=== PATIENT | female | born 1945 | race Caucasian/White ===

== ENCOUNTER 2017-06-03 04:35 | Inpatient (IN) | payer OTHER ==
[~2017-06-03] VITALS: Ht 162.6 cm; Wt 106.4 kg
[2017-06-03] MEDS ORDERED: ONDANSETRON 2MG/ML, 2ML ONE (04:58)
[2017-06-03] MEDS ORDERED: ONDANSETRON 2MG/ML, 2ML IVPush ONE (05:00)
[2017-06-03] MEDS ORDERED: SODIUM CHLORIDE 0.9% 1,000ML IVBOLUS ONE (05:00)
[2017-06-03] MEDS ORDERED: PROMETHAZINE 25 MG/ML, 1ML IM ONE (05:30)
[2017-06-03 05:40] LABS: BASOPHILS # (AUTO) 0.01 x10^3/uL (0-0.1); BASOPHILS % (AUTO) 0 % (0-1); EOSINOPHILS # (AUTO) 0.01 x10^3/uL (0-0.4); EOSINOPHILS % (AUTO) 0 % (1-7); LYMPHOCYTES % (AUTO) 7 % (22-44); MD NO; MEAN CORPUSCULAR HEMOGLOBIN 29.8 pg (27.0-34.8); MEAN CORPUSCULAR HGB CONC 33.2 g/dL (32.4-35.8); MEAN CORPUSCULAR VOLUME 89.9 fL (80-100); MEAN PLATELET VOLUME 8.1 fL (7.4-10.4); MONOCYTES # (AUTO) 0.37 x10^3/uL (0.2-0.8); MONOCYTES % (AUTO) 4 % (2-9); NEUTROPHILS # (AUTO) 7.99 x10^3/uL (1.8-6.8); NEUTROPHILS % (AUTO) 89 % (42-75); PLATELET COUNT 230 x10^3/uL (130-400); RED BLOOD COUNT 5.47 x10^6/uL (3.82-5.3); RED CELL DISTRIBUTION WIDTH 13.5 % (9.6-15.2)
[2017-06-03] MEDS ORDERED: PROMETHAZINE 25 MG/ML, 1ML ONE (05:42)
[2017-06-03 05:44] LABS: ALANINE AMINOTRANSFERASE 37 U/L (12-78); ALBUMIN 3.1 g/dL (3.4-5.0); ANION GAP 6 mmol/L (5-15); CALCIUM 8.5 mg/dL (8.5-10.1); CHLORIDE 109 mmol/L (98-107)
[2017-06-03 05:49] LABS: ALKALINE PHOSPHATASE 82 U/L (45-117); BILIRUBIN,TOTAL 0.5 mg/dL (0.2-1.0); TOTAL PROTEIN 6.9 g/dL (6.4-8.2); TROPONIN I < 0.015 ng/mL (0.000-0.045)
[2017-06-03] MEDS ORDERED: FAMOTIDINE 20 MG/2 ML ONE (05:50)
[2017-06-03 05:55] LABS: THYROID STIMULATING HORMONE 0.632 mIU/L (0.358-3.740)
[2017-06-03] MEDS ORDERED: NS + 40MEQ KCL 1,000 ML IV ONE ×2 (05:59→06:18)
[2017-06-03] MEDS ORDERED: FAMOTIDINE 20 MG/2 ML IVPush ONE (06:00)
[2017-06-03] MEDS ORDERED: MAALOX/HYOSCYAMINE/LIDOCAINE 45 ML BTL PO ONE (06:00)
[2017-06-03] MEDS ORDERED: MAALOX/HYOSCYAMINE/LIDOCAINE 45 ML BTL ONE (06:18)
[2017-06-03 06:44] LABS: RAPID INFLUENZA A Negative (Negative); RAPID INFLUENZA B Negative (Negative)
[2017-06-03] MEDS ORDERED: HYDR25TA6 PO (07:11)
[2017-06-03] MEDS ORDERED: SIMV10TA3 PO (07:11)
[2017-06-03] MEDS ORDERED: LEVO25TA4 PO (07:11)
[2017-06-03] MEDS ORDERED: METO-93 PO (07:11)
[2017-06-03] MEDS ORDERED: AMLO2.5T PO (07:11)
[2017-06-03 07:41] LABS: CULTURE INDICATED? YES; MICROSCOPIC INDICATED
[2017-06-03] MEDS ORDERED: ACETAMINOPHEN 325 MG TABLET PO PRN (08:30)
[2017-06-03] MEDS ORDERED: OXYcodone IR 5MG TABLET PO PRN (08:30)
[2017-06-03] MEDS ORDERED: ENALAPRILAT 1.25 MG/ML, 2ML IVPush PRN (08:30)
[2017-06-03] MEDS ORDERED: morphine SULFATE 10 MG/ML, 1ML IVPush PRN (08:30)
[2017-06-03] MEDS ORDERED: hydrALAzine 20 MG/ML, 1ML IVPush PRN (08:30)
[2017-06-03 09:11] LABS: HEMOGLOBIN A1C 6.1 % (4.2-6.3)
[2017-06-03 10:18] VITALS: BP 175/83
[2017-06-03] MEDS: METOPROLOL SUCCINATE 50 MG TAB.ER.24H PO SCH (10:35)
[2017-06-03] MEDS: HEPARIN 5,000 UNITS/ML, 1ML SQ SCH ×2 (10:35→17:59)
[2017-06-03] MEDS: LEVOTHYROXINE 25 MCG TABLET PO SCH (10:35)
[2017-06-03] MEDS: SODIUM CHLORIDE 0.9% 1,000 ML IV SCH ×2 (10:38→22:32)
[2017-06-03] MEDS: AMLODIPINE 2.5 MG TABLET PO SCH (10:52)
[2017-06-03] MEDS: ERTAPENEM 1 GM in SODIUM CHLORIDE 0.9% 50 ML IV SCH (11:10)
[2017-06-03 14:19] VITALS: BP 129/82
[2017-06-03] MEDS: SIMVASTATIN 10 MG TABLET PO SCH (20:20)
[2017-06-03] MEDS: SODIUM CHLORIDE NASAL SPRAY 45ML BOTTLE NAS PRN (20:20)
[2017-06-03 20:51] VITALS: BP 106/66
[2017-06-04 01:06] VITALS: BP 129/73
[2017-06-04] MEDS: HEPARIN 5,000 UNITS/ML, 1ML SQ SCH ×3 (02:44→16:30)
[2017-06-04] MEDS: SODIUM CHLORIDE 0.9% 1,000 ML IV SCH (02:44)
[2017-06-04 06:08] LABS: BASOPHILS # (AUTO) 0.03 x10^3/uL (0-0.1); BASOPHILS % (AUTO) 0 % (0-1); EOSINOPHILS # (AUTO) 0.05 x10^3/uL (0-0.4); EOSINOPHILS % (AUTO) 1 % (1-7); LYMPHOCYTES # (AUTO) 1.82 x10^3/uL (1-3.4); LYMPHOCYTES % (AUTO) 20 % (22-44); MD NO; MEAN CORPUSCULAR HEMOGLOBIN 29.7 pg (27.0-34.8); MEAN CORPUSCULAR HGB CONC 33.4 g/dL (32.4-35.8); MEAN CORPUSCULAR VOLUME 88.9 fL (80-100); MEAN PLATELET VOLUME 8.2 fL (7.4-10.4); MONOCYTES # (AUTO) 0.76 x10^3/uL (0.2-0.8); MONOCYTES % (AUTO) 8 % (2-9); NEUTROPHILS # (AUTO) 6.46 x10^3/uL (1.8-6.8); NEUTROPHILS % (AUTO) 71 % (42-75); PLATELET COUNT 196 x10^3/uL (130-400); RED BLOOD COUNT 4.63 x10^6/uL (3.82-5.3); RED CELL DISTRIBUTION WIDTH 13.7 % (9.6-15.2)
[2017-06-04 06:15] LABS: CHLORIDE 113 mmol/L (98-107)
[2017-06-04 06:25] LABS: ALANINE AMINOTRANSFERASE 36 U/L (12-78); ALBUMIN 2.6 g/dL (3.4-5.0); ALKALINE PHOSPHATASE 63 U/L (45-117); ANION GAP 5 mmol/L (5-15); BILIRUBIN,TOTAL 0.4 mg/dL (0.2-1.0); CHOL/HDL RATIO 2.5; CHOLESTEROL, TOTAL 87 mg/dL (140-239); CREATININE 0.65 mg/dL (0.55-1.02); HDL CHOL % 40 % (28-40); HDL CHOLESTEROL (DIRECT) 35 mg/dL (40-60); LDL CHOLESTEROL,CALCULATED 37 mg/dL (54-169); LDL/HDL RATIO 1.1 (0.5-3.0); TOTAL PROTEIN 5.9 g/dL (6.4-8.2); TRIGLYCERIDES 76 mg/dL (50-200); VLDL CHOLESTEROL 15 mg/dL (0-25)
[2017-06-04] MEDS: LEVOTHYROXINE 25 MCG TABLET PO SCH (06:25)
[2017-06-04 08:14] VITALS: BP 124/77
[2017-06-04] MEDS: METOPROLOL SUCCINATE 50 MG TAB.ER.24H PO SCH (08:15)
[2017-06-04] MEDS: AMLODIPINE 2.5 MG TABLET PO SCH (08:15)
[2017-06-04] MEDS ORDERED: POTASSIUM CHLORIDE 40 MEQ in SODIUM CHLORIDE 0.9% 500 ML IV ONE (10:00)
[2017-06-04] MEDS: ERTAPENEM 1 GM in SODIUM CHLORIDE 0.9% 50 ML IV SCH (10:19)
[2017-06-04] MEDS: ONDANSETRON 2MG/ML, 2ML IVPush PRN ×2 (13:30→22:53)
[2017-06-04] MEDS ORDERED: POTASSIUM CHLORIDE 20 MEQ TAB.ER.PRT PO ONE (14:30)
[2017-06-04 14:55] VITALS: BP 143/83
[2017-06-04 18:42] VITALS: BP 129/82
[2017-06-04] MEDS: SIMVASTATIN 10 MG TABLET PO SCH (20:20)
[2017-06-04] MEDS: SODIUM CHLORIDE NASAL SPRAY 45ML BOTTLE NAS PRN (20:20)
[2017-06-04] MEDS: CALCIUM CARBONATE 500 MG TAB.CHEW PO PRN (21:06)
[2017-06-04] MEDS: FLUTICASONE NASAL SPRAY 16GM NAS SCH (21:06)
[2017-06-05 00:58] LABS: CLOSTRIDIUM DIFFICILE ANTIGEN NEGATIVE; CLOSTRIDIUM DIFFICILE TOXIN NEGATIVE (Negative)
[2017-06-05] MEDS: HEPARIN 5,000 UNITS/ML, 1ML SQ SCH ×3 (01:22→16:23)
[2017-06-05 01:34] VITALS: BP_SYST 142; BP_SYST 161; BP_DIAS 81; BP_DIAS 99
[2017-06-05] MEDS: LEVOTHYROXINE 25 MCG TABLET PO SCH (06:43)
[2017-06-05 07:35] VITALS: BP 160/74
[2017-06-05] MEDS: AMLODIPINE 2.5 MG TABLET PO SCH (07:55)
[2017-06-05] MEDS: FLUTICASONE NASAL SPRAY 16GM NAS SCH ×2 (07:55→20:21)
[2017-06-05] MEDS: METOPROLOL SUCCINATE 50 MG TAB.ER.24H PO SCH (07:55)
[2017-06-05] MEDS: ERTAPENEM 1 GM in SODIUM CHLORIDE 0.9% 50 ML IV SCH (07:56)
[2017-06-05] MEDS ORDERED: SODIUM CHLORIDE 0.9% 1,000 ML IV SCH (09:30)
[2017-06-05 10:31] LABS: ALANINE AMINOTRANSFERASE 40 U/L (12-78); ALBUMIN 2.9 g/dL (3.4-5.0); ANION GAP 7 mmol/L (5-15); CALCIUM 8.2 mg/dL (8.5-10.1); CHLORIDE 110 mmol/L (98-107); CREATININE 0.69 mg/dL (0.55-1.02)
[2017-06-05 10:33] LABS: ALKALINE PHOSPHATASE 71 U/L (45-117); BILIRUBIN,TOTAL 0.5 mg/dL (0.2-1.0); TOTAL PROTEIN 6.5 g/dL (6.4-8.2)
[2017-06-05 14:08] VITALS: BP 146/84
[2017-06-05] MEDS: D5%-0.9% NACL+KCL 20MEQ 1,000 ML IV SCH (16:23)
[2017-06-05] MEDS: LACTOBACILLUS CHEW TABLET PO SCH ×2 (16:23→20:21)
[2017-06-05 19:36] VITALS: BP 118/73
[2017-06-05] MEDS: SIMVASTATIN 10 MG TABLET PO SCH (20:20)
[2017-06-05] MEDS: CALCIUM CARBONATE 500 MG TAB.CHEW PO PRN (20:21)
[2017-06-06 00:58] VITALS: BP 114/73
[2017-06-06] MEDS: HEPARIN 5,000 UNITS/ML, 1ML SQ SCH ×3 (01:09→16:30)
[2017-06-06] MEDS: LEVOTHYROXINE 25 MCG TABLET PO SCH (05:19)
[2017-06-06] MEDS: D5%-0.9% NACL+KCL 20MEQ 1,000 ML IV SCH ×3 (05:19→23:36)
[2017-06-06 06:12] LABS: BASOPHILS # (AUTO) 0.03 x10^3/uL (0-0.1); BASOPHILS % (AUTO) 0 % (0-1); EOSINOPHILS % (AUTO) 5 % (1-7); LYMPHOCYTES # (AUTO) 1.65 x10^3/uL (1-3.4); LYMPHOCYTES % (AUTO) 26 % (22-44); MD NO; MEAN CORPUSCULAR HGB CONC 33.9 g/dL (32.4-35.8); MEAN CORPUSCULAR VOLUME 88.4 fL (80-100); MEAN PLATELET VOLUME 8.2 fL (7.4-10.4); MONOCYTES # (AUTO) 0.57 x10^3/uL (0.2-0.8); MONOCYTES % (AUTO) 9 % (2-9); NEUTROPHILS # (AUTO) 3.87 x10^3/uL (1.8-6.8); NEUTROPHILS % (AUTO) 60 % (42-75); PLATELET COUNT 211 x10^3/uL (130-400); RED CELL DISTRIBUTION WIDTH 13.5 % (9.6-15.2)
[2017-06-06 06:22] LABS: CHLORIDE 113 mmol/L (98-107)
[2017-06-06 06:54] LABS: ANION GAP 9 mmol/L (5-15); CALCIUM 8.6 mg/dL (8.5-10.1); CREATININE 0.62 mg/dL (0.55-1.02)
[2017-06-06] MEDS: AMLODIPINE 2.5 MG TABLET PO SCH (07:56)
[2017-06-06] MEDS: METOPROLOL SUCCINATE 50 MG TAB.ER.24H PO SCH (07:56)
[2017-06-06] MEDS: LACTOBACILLUS CHEW TABLET PO SCH ×3 (07:56→20:30)
[2017-06-06] MEDS: FLUTICASONE NASAL SPRAY 16GM NAS SCH ×2 (07:56→20:31)
[2017-06-06 08:11] VITALS: BP 116/76
[2017-06-06] MEDS ORDERED: ACID1TAB7 PO (13:11)
[2017-06-06] MEDS ORDERED: OMEP-110 PO (13:11)
[2017-06-06 13:44] VITALS: BP 134/89
[2017-06-06] MEDS: ONDANSETRON 2MG/ML, 2ML IVPush PRN (14:07)
[2017-06-06] MEDS: OMEPRAZOLE 20 MG CAPSULE.DR PO SCH ×2 (14:23→20:30)
[2017-06-06 19:54] VITALS: BP 132/79
[2017-06-06] MEDS: SIMVASTATIN 10 MG TABLET PO SCH (20:31)
[2017-06-07] MEDS: HEPARIN 5,000 UNITS/ML, 1ML SQ SCH ×2 (00:56→07:52)
[2017-06-07 01:51] VITALS: BP 138/82
[2017-06-07] MEDS: LEVOTHYROXINE 25 MCG TABLET PO SCH (06:43)
[2017-06-07] MEDS: D5%-0.9% NACL+KCL 20MEQ 1,000 ML IV SCH (07:30)
[2017-06-07] MEDS: OMEPRAZOLE 20 MG CAPSULE.DR PO SCH (07:52)
[2017-06-07] MEDS: METOPROLOL SUCCINATE 50 MG TAB.ER.24H PO SCH (07:53)
[2017-06-07] MEDS: LACTOBACILLUS CHEW TABLET PO SCH (07:53)
[2017-06-07] MEDS: FLUTICASONE NASAL SPRAY 16GM NAS SCH (07:53)
[2017-06-07] MEDS: AMLODIPINE 2.5 MG TABLET PO SCH (07:53)
[2017-06-07 08:09] VITALS: BP 146/79
== END 2017-06-07 12:30 | disposition home or self-care (01) | DRG 392 ==
LOC: ED 05:39 → EDIP 06:19 → UNDOADMIN 07:41 → EDIP 07:41 → 5SO 09:47
PROVIDERS: ADMIT Family Medicine; ATTEND Family Medicine
DX: A08.4 Viral intestinal infection, unspecified (principal); I47.2 Ventricular tachycardia; E44.0 Moderate protein-calorie malnutrition; I95.9 Hypotension, unspecified; E86.0 Dehydration; I11.9 Hypertensive heart disease without heart failure; Z68.41 Body mass index [BMI] 40.0-44.9, adult; E03.9 Hypothyroidism, unspecified; G47.33 Obstructive sleep apnea (adult) (pediatric); E87.6 Hypokalemia; E78.5 Hyperlipidemia, unspecified; J32.9 Chronic sinusitis, unspecified; K21.9 Gastro-esophageal reflux disease without esophagitis; Z80.1 Family history of malignant neoplasm of trachea, bronchus and lung; Z85.841 Personal history of malignant neoplasm of brain; Z87.891 Personal history of nicotine dependence; Z92.21 Personal history of antineoplastic chemotherapy; Z92.3 Personal history of irradiation; Z90.49 Acquired absence of other specified parts of digestive tract; Z88.6 Allergy status to analgesic agent; Z88.1 Allergy status to other antibiotic agents; Z88.0 Allergy status to penicillin; Z88.2 Allergy status to sulfonamides; Z88.8 Allergy status to other drugs, medicaments and biological substances; Z91.048 Other nonmedicinal substance allergy status
CPT/HCPCS: 36415; 70450; 71045; 80048; 80053; 80061; 81001; 82306; 82607; 83036; 83690; 83735; 84100; 84443; 84484; 85025; 87046; 87086; 87324; 87400; 87899; 93005; 93306; 93880; 96361; 96372; 96374; 96375; J1335; J1644; J2405; J2550; J3480; J7030; J7040; S0028